=== PATIENT | female | born 1960 | race Caucasian/White ===

== ENCOUNTER 2024-06-16 05:22 | Day surgery (SDC) | payer BC ==
[2024-06-15 15:49] VITALS: BMI 27.1
[2024-06-16] MEDS ORDERED: ONDANSETRON 4 MG/2 ML VIAL IVPUSH PRN (14:17)
[2024-06-16] MEDS ORDERED: oxyCODONE HCL 5 MG TABLET PO PRN (14:17)
[2024-06-16] MEDS: LACTATED RINGERS SOLUTION 1,000 ML IV SCH (14:25)
[2024-06-16 15:01] VITALS: RESP 20
[2024-06-16 16:19] VITALS: BP 164/76; PULSE 72; TEMP 96.8
== END 2024-06-16 16:34 | disposition home or self-care (01) ==
LOC: JASU-SURG 05:22
PROVIDERS: ATTEND Obstetrics & Gynecology
PROC: 0UBC7ZX Excision of Cervix, Via Natural or Artificial Opening, Diagnostic (ICD-10-PCS; principal; 2024-06-16 12:00)
DX: N87.1 Moderate cervical dysplasia (principal); N72 Inflammatory disease of cervix uteri
CPT/HCPCS: 88305-TC; 88307-TC; 88341-TC; 88342-TC; 94760